=== PATIENT | female | born 1950 | race Caucasian/White ===

== ENCOUNTER 2018-07-02 13:14 | Observation (INO) ==
[2018-07-02] MEDS ORDERED: Naloxone 0.4 MG/ML INJ IVP PRN (16:55)
--- NOTE | 2018-07-02 16:55 | Internal Med History&Physical ---
Date of Encounter: 07/02/18 Time of Encounter: 16:45 Internal Medicine - H&P: HPI Chief complaint: fall, r/o CvA Admitted From: Intrahospital Transfer History of present illness: Ms. Antonio is a 68 year old female patient with history of hypertension, CAD status post 1 stent on aspirin, prediabetes, known alcoholic liver cirrhosis diagnoses recently and awaiting to be seen by GI specialist, cons disease status post multiple abdominal surgery got transferred to [facility] from [place] [facility] for further evaluation of CVA rule out. Patient fell down and hit the back of the head while getting out or the passenger side of the car today and she thinks that she missed the curbside and tired over but denies dizziness or chest pain palpitation during this event. She did not loss consciousness and was brought to [place] ER. In ER patient was found hypokalemic and got replaced. In emergency department patient had episode of generalized weakness with significant dizziness and vertigo. Therefore ER physician got concerned and wanted to rule out a strep therefore transferred to [facility] for further workup of CVA including MRI brain and neurologY consultation. Patient also had scalp laceration is small in size did not require incision at the back of the head During my evaluation patient is alert awake oriented 3 and answering questions appropriately with some slurred speech but it has been persistent for last 2 month as per family. Family stated that patient has been on balance with 5-6 falls and slurred speech for last almost 2 months. During that time. Patient also had UTI and low iron therefore got treated with antibiotic and IV infusion and the patient seemed to doing better therefore family did not address any concern for ongoing slurred speech and all balance and did not seek neurological evaluation. Patient denies fever chills nausea vomiting headache dizziness chest pain shortness of breath abdominal pain urinary bowel complaint at this time Past Med Surg Social Fam HX - Past Medical History Medical history: atrial fibrillation, cirrhosis, coronary artery disease, GERD, hypertension, myocardial infarction, thyroid disease, other Additional medical history: Crohn's, hypothyroidism, SBO Psychiatric history: no psych history - Past Surgical History Surgical History: cholecystectomy, other Additional surgical history: pessary, LHC, stents x2, colectomy - Social History Smoking Status: Former smoker Smokeless Tobacco Status: No Alcohol use: none Drug use: none - Family History Mother Living Status: Hx Family Endocrine Disorder: Yes (DM) Hx Family Neurologic Disorders: Yes (CVA) Father Living Status: Hx Family Respiratory Disorders: Yes Internal Medicine - H&P: Meds Pantoprazole Sodium 40 mg PO QAM 12/15/14 [History] Metoprolol XL (24 HR) Succ [Toprol XL] 100 mg PO QPM 02/25/15 [History] Nitroglycerin [Nitrostat] 0.4 mg SL AD PRN 02/25/15 [History] Aspirin 81 mg PO DAILY 01/22/16 [History] Ergocalciferol (VITAMIN D2) [Vitamin D2] 50,000 unit PO QWEEK 03/03/17 [History] Pregabalin [Lyrica] 150 mg PO BID 14 Days capsule 04/11/17 [Rx] Amitriptyline HCl 75 mg PO DAILY 07/02/18 [History] Cyanocobalamin (B-12) [Vitamin B12] 1,000 mcg PO DAILY 07/02/18 [History] Ketoprofen [Frotek] 1 gm TP DAILY 07/02/18 [History] Levothyroxine [Synthroid] 150 mcg PO DAILY 07/02/18 [History] Pregabalin [Lyrica] 100 mg PO TID 07/02/18 [History] Allergy/AdvReac Type Severity Reaction Status Date / Time Penicillins Allergy Rash Verified 03/26/17 06:12 All Systems PM: A 10-system review of systems was performed and is negative for pertinent findings except as documented above in the HPI. - Constitutional Vitals: Temp Pulse Resp BP Pulse Ox 97.6 F 95 15 136/71 97 07/02/18 15:55 07/02/18 15:55 07/02/18 15:55 07/02/18 15:55 07/02/18 15:55 Exam: General appearance: No acute distress, A&O X 3. Family at bedside. Head exam: Small laceration in the posterior scalp-bandage in place. No visible active bleeding through the dressing. No stenosis Eye exam: EOMI, PERRLA ENT exam: Moist oral mucosa Neck nontender, supple Respiratory exam: Clear to auscultation bilaterally Cardiovascular exam: Regular rate and rhythm, 3 x 6 systolic murmur Abdominal exam: Soft, nontender, nondistended, positive bowel sounds Extremities exam: No calf tenderness, no pedal edema Present: Skin-no rash, warm, dry, intact Neurological exam: Alert, awake, oriented 3, CN II-XII intact, no focal deficits. No facial droop. Mild slurred speech. Patient refused walking as has fear of - Assessment and Plan (1) Dizziness Current Visit: No Status: Acute Assessment and plan: Patient had dizziness and fall today and has been off balance for 2 months and never had cardiac or neurological evaluation. Will admit patient in telemetry, troponin serial, echocardiogram, MRI head, carotid ultrasound. Will restart aspirin and a statin with fasting lipid profile. As patient had consulted cardiology as patient had tachycardia on telemetry. A stat EKG also ordered. Will also consult neurologist if any concern. Fall precaution. (2) Crohns disease Current Visit: No Status: Acute Assessment and plan: Stable. Patient follow GI specialist Dr. quintanilla. Status post multiple abdominal surgery Qualifiers: Gastrointestinal tract location: unspecified location Digestive disease complication type: unspecified complication Qualified Code(s): K50.919 - Crohn's disease, unspecified, with unspecified complications (3) Hypokalemia Current Visit: No Status: Acute Assessment and plan: Potassium 2.9 at [place] that has been replaced by 40 mEq potassium. Will order BMP and magnesium is stat (4) Hypothyroidism Current Visit: No Status: Acute Assessment and plan: TSH ordered. Continue home medicine after having met VAC done Qualifiers: Hypothyroidism type: unspecified Qualified Code(s): E03.9 - Hypothyroidism, unspecified (5) Recurrent falls while walking Current Visit: No Status: Acute Assessment and plan: Has been off balance for last 2 months. No evaluation done. Will rule out underlying CVA or cardiac abnormality. PT OT consultation. Fall risk p recaution (6) UTI (urinary tract infection) Current Visit: No Status: Acute Assessment and plan: Stable UTI recently. UA with reflex to culture. Will consider antibiotic if abnormal Qualifiers: Urinary tract infection type: site unspecified Hematuria presence: without hematuria Qualified Code(s): N39.0 - Urinary tract infection, site not specified (7) CAD (coronary artery disease) Current Visit: No Status: Chronic Assessment and plan: Status post stent. Continue home medicine aspirin. Fasting lipid profile ordered Qualifiers: Coronary Disease-Associated Artery/Lesion type: [place] artery [place] vs. transplanted heart: [place] heart Associated angina: without angina Qualified Code(s): I25.10 - Atherosclerotic heart disease of [place] coronary artery without angina pectoris (8) Hypertension Current Visit: No Status: Chronic Assessment and plan: Will review med rec. Close monitoring. Qualifiers: Hypertension type: essential hypertension Qualified Code(s): I10 - Essential (primary) hypertension (9) DVT prophylaxis Current Visit: No Status: Acute Assessment and plan: Heparin subcutaneous (10) Bradycardia Current Visit: Yes Status: Acute Assessment and plan: Heart rate in 20s and 30s On telemetry. EKG and serial troponin ordered. Will consult cardiology. - Time Spent With Patient Total time spent is greater than 50% in coordination of care (as documented) at patient's floor/unit and/or counseling patient: Greater than 35 minutes
[2018-07-02 19:22] LABS: BUN/Creatinine Ratio 11 (6-26); Blood Urea Nitrogen 10 mg/dL (8-23); Calcium 7.9 mg/dL (8.6-10.3); Carbon Dioxide 23 mEq/L (23-29); Chloride 107 mEq/L (98-107); Glucose 70 mg/dL (70-105); Osmolality,Calculated 285 (280-300); Potassium 3.5 mEq/L (3.5-5.1); Sodium 139 mEq/L (136-145); eGFR For Non-African Americans > 60 (> 60)
[2018-07-02] MEDS: *HR* Heparin 5,000 UNIT/ML VIAL SQ SCH (19:57)
[2018-07-02] MEDS ORDERED: Perflutren Lipid Microsphere 1.3 ML in 0.9 % Sodium Chloride 8.7 ML IVP ONE (21:30)
[2018-07-03 00:37] LABS: Bilirubin,Urine Negative (Negative); Blood,Urine Negative (Negative); Clarity,Urine Clear (Clear); Color,Urine Yellow (Yellow); Glucose,Urine (UA) Normal (Normal); Ketones,Urine 15 mg/dL (Negative); Leukocyte Esterase,Urine Small (Negative); Nitrite,Urine Negative (Negative); Protein,Urine Negative (Neg-Trace); Specific Gravity,Urine 1.015 (1.010-1.025); Urobilinogen,Urine Normal (Normal)
[2018-07-03 00:39] LABS: Mucus,Urine Moderate (Few); Squamous Epithelial Cell,Urine Few per lpf (None-Few)
[2018-07-03 01:38] LABS: Eosinophils # 0.1 K/mcL (0.0-0.6); Eosinophils % 2.5 %; Hemoglobin 9.9 g/dL (11.5-15.4)
[2018-07-03 01:39] LABS: Basophils % 0.4 %; Hematocrit 31.8 % (35.3-44.9); Immature Granulocytes % 0.2 % (0-4); Immature Platelets 5.7 % (1.1-6.1); Lymphocytes % 21.1 %; Mean Corpuscular HGB Conc 31.1 g/dL (31.6-35.5); Mean Corpuscular Hemoglobin 23.3 pg (28.0-33.3); Mean Platelet Volume 11.9 fL (9.4-12.4); Monocytes # 0.4 K/mcL (0.0-1.3); Monocytes % 7.8 %; Platelet Count 162 K/mcL (140-400); Red Blood Count 4.24 M/mcL (3.82-4.97); Red Cell Distribution Width 21.9 % (11.5-14.5)
[2018-07-03 01:41] LABS: Neutrophils # 3.1 K/mcL (1.6-8.9)
[2018-07-03 01:52] LABS: Alanine Aminotransferase 31 Units/L (7-52); Albumin 2.1 g/dL (3.5-5.7); Alkaline Phosphatase 215 Units/L (34-104); Aspartate Amino Transferase 47 Units/L (13-39); BUN/Creatinine Ratio 11 (6-26); Bilirubin,Total 0.5 mg/dL (0.3-1.0); Blood Urea Nitrogen 10 mg/dL (8-23); Calcium 7.5 mg/dL (8.6-10.3); Carbon Dioxide 21 mEq/L (23-29); Chloride 108 mEq/L (98-107); Chol/HDL Ratio 2.3 (0-4.9); Cholesterol 84 mg/dL (< 200); Globulin 2.1 g/dL (2.4-3.5); Glucose 73 mg/dL (70-105); HDL Cholesterol 37 mg/dL (40-59); LDL Cholesterol,Calculated 33 mg/dL (0-99); Osmolality,Calculated 284 (280-300); Potassium 3.5 mEq/L (3.5-5.1); Sodium 138 mEq/L (136-145); Total Protein 4.2 g/dL (6.4-8.9); Triglycerides 71 mg/dL (< 150); eGFR For Non-African Americans 60 (> 60)
[2018-07-03 02:07] LABS: Anisocytosis 1+ (Not Present); Platelet Estimate Normal (Normal)
[2018-07-03] MEDS: *HR* Heparin 5,000 UNIT/ML VIAL SQ SCH ×2 (05:45→18:08)
[2018-07-03] MEDS: Aspirin 81 MG TAB.CHEW PO SCH (08:55)
--- NOTE | 2018-07-03 09:55 | Electrocardiograph Report ---
[place] [id number] Test Date: 2018-07-02 Pat Name: Norma Antonio Department: 113 Room: 3B24 Gender: F [employer]: : 1950 Requested By: Rachael Slaughter Order Number: [id number] Reading MD: Evin Alcocer Measurements Intervals [place] Rate: 95 P: -5 ID: [id number] QRS: -3 QRSD: 84 T: 60 QT: 361 QTc: 414 Interpretive Statements SINUS RHYTHM LOW QRS VOLTAGE IN EXTREMITY LEADS NONSPECIFIC T-WAVE ABNORMALITY Electronically Signed On 07-03-2018 9:54:02 EDT by Evin Alcocer
--- NOTE | 2018-07-03 13:29 | Internal Med Progress Note ---
Hospitalist Progress Note - Encounter Date of Encounter: 07/03/18 Time of Encounter: 13:29 - Subjective Interval History: Patient was assessed at bedside. reports patient has been falling frequently and at times has slurred speech. This is the patient to the bathroom upon standing patient immediately lean to the right side and lost her balance. Since the patient back to bed - Exam Vitals: Temp Pulse Resp BP Pulse Ox 97.8 F 104 18 136/79 96 07/03/18 11:30 07/03/18 11:30 07/03/18 11:30 07/03/18 11:30 07/03/18 11:30 Exam: General appearance: No acute distress, A&O X 3. Family at bedside. Head exam: Small laceration in the posterior scalp-bandage in place. No visible active bleeding through the dressing. No stenosis Eye exam: EOMI, PERRLA ENT exam: Moist oral mucosa Neck nontender, supple Respiratory exam: Clear to auscultation bilaterally Cardiovascular exam: Regular rate and rhythm, 3 x 6 systolic murmur Abdominal exam: Soft, nontender, nondistended, positive bowel sounds Extremities exam: No calf tenderness, no pedal edema Present: Skin-no rash, warm, dry, intact Neurological exam: Alert, awake, oriented 3, CN II-XII intact, no focal deficits. No facial droop. Speech is fluent. Attempted to walk and leading to right side - Assessment and Plan (1) Crohns disease Current Visit: No Status: Acute Assessment and Plan: Stable. Patient follow GI specialist Dr. quintanilla. Status post multiple abdominal surgery (2) CAD (coronary artery disease) Current Visit: No Status: Chronic Assessment and Plan: Status post stent. Continue home medicine . (3) Hypertension Current Visit: No Status: Chronic Assessment and Plan: Continue lisinopril and beta james (4) Hypothyroidism Current Visit: No Status: Acute Assessment and Plan: TSH stable (5) DVT prophylaxis Current Visit: No Status: Acute Assessment and Plan: Heparin subcutaneous (6) Hypokalemia Current Visit: No Status: Acute Assessment and Plan: Replace and monitor (7) Recurrent falls while walking Current Visit: No Status: Acute Assessment and Plan: Has been off balance for last 2 months. Recurrent mechanical falls while walking Fell and struck head abrasion superior occiput Has history of chronic diarrhea from Crohn's disease as well as chronic anemia which could be contributing to hypotension and orthostatic Electrolytes are normal which we will replace History of chronic UTIs Neurology consulted and appreciate recommendations (8) UTI (urinary tract infection) Current Visit: No Status: Acute Assessment and Plan: Stable UTI recently. UA with reflex to culture. Will consider antibiotic if abnormal (9) Dizziness Current Visit: No Status: Acute Assessment and Plan: Continue telemetry Troponins negative 2 Carotid duplex Impressions: Findings: Bilateral distal ICA has a moderate, 40-59% stenosis. Cardiac echo mpressions: LVEF 50-55%. Normal left ventricular diastolic function. The right ventricle was not well visualized but appeared grossly normal in size and function Interatrial septum not well evaluated. Poor quality agitated saline contrast study Unable to estimate RVSP due to lack of TR jet. No obvious significant valvular dysfunction in this technically challenging study. MRI of head with no acute intracranial on the maladies EKG with sinus rhythm MRA of head pending Neurology consulted and appreciate recommendations PT OT Fall precautions (10) Bradycardia Current Visit: Yes Status: Acute Assessment and Plan: Heart rate in 20s and 30s On telemetry. EKG and serial troponin ordered. Will consult cardiology.- Cardiology consult canceled due to patient's telemetry showing rate 60-70 apparently leads were reversed during initial monitoring-which did reveal heart rate in the 20 - Time Spent with Patient Total time spent is greater than 50% in coordination of care (as documented) at patient's floor/unit and/or counseling patient: Internal Medicine: Result - Labs CBC & Chem 7: 07/03/18 01:22 07/03/18 01:22 Labs: Short CBC 07/03/18 Range/Units 01:22 WBC 4.5 (4.3-11.1) K/mcL Hgb 9.9 L D (11.5-15.4) g/dL Hct 31.8 L (35.3-44.9) % Plt Count 162 (140-400) K/mcL Neutrophils # 3.1 (1.6-8.9) K/mcL BMP 07/02/18 07/03/18 18:38 01:22 Sodium 139 138 Potassium 3.5 3.5 Chloride 107 108 H Carbon Dioxide 23 21 L BUN 10 10 Creatinine 0.92 0.93 Glucose 70 73 Calcium 7.9 L 7.5 L Cardiac Enzymes 07/02/18 07/03/18 Range/Units 17:17 01:22 Troponin I < 0.03 < 0.03 (< 0.04) ng/mL Liver Function 07/03/18 Range/Units 01:22 Total Bilirubin 0.5 (0.3-1.0) mg/dL AST 47 H (13-39) Units/L ALT 31 (7-52) Units/L Alkaline Phosphatase 215 H (34-104) Units/L Albumin 2.1 L (3.5-5.7) g/dL Urine 07/02/18 Range/Units 19:08 Urine Color Yellow (Yellow) Urine Clarity Clear (Clear) Urine pH 6.0 (5.0-8.0) pH Units Ur Specific [place] 1.015 (1.010-1.025) Urine Protein Negative (Neg-Trace) mg/dL Urine Glucose (UA) Normal (Normal) mg/dL - Impressions Impressions Brain MRI 07/02/18 18:00 IMPRESSION: No acute infarct. D/ / Lucius Barrow MD / Lucius Barrow MD Interpreting Provider: Lucius Barrow MD Consult Discharge Plan - Plan Referrals: Rose Juarez MD [Partnered Physician] - 07/06/18 3:45 pm () Nikolay Quintanilla MD [Partnered Physician] - 07/25/18 3:50 pm ____ (1) Crohns disease Qualifiers: Gastrointestinal tract location: unspecified location Digestive disease complication type: unspecified complication Qualified Code(s): K50.919 - Crohn's disease, unspecified, with unspecified complications (2) CAD (coronary artery disease) Qualifiers: Coronary Disease-Associated Artery/Lesion type: [place] artery [place] vs. transplanted heart: [place] heart Associated angina: without angina Qualified Code(s): I25.10 - Atherosclerotic heart disease of [place] coronary artery without angina pectoris (3) Hypertension Qualifiers: Hypertension type: essential hypertension Qualified Code(s): I10 - Essential (primary) hypertension (4) Hypothyroidism Qualifiers: Hypothyroidism type: unspecified Qualified Code(s): E03.9 - Hypothyroidism, unspecified (8) UTI (urinary tract infection) Qualifiers: Urinary tract infection type: site unspecified Hematuria presence: without hematuria Qualified Code(s): N39.0 - Urinary tract infection, site not specified
[2018-07-03 13:48] LABS: Magnesium 1.2 mg/dL (1.6-2.6)
--- NOTE | 2018-07-03 15:12 | Neurology - Consult Note ---
<Lj Singletary J - Last Filed: 07/03/18 15:08> Date of Encounter: 07/03/18 Time of Encounter: 15:09 Assessment and Plan (1) Recurrent falls while walking Current Visit: No Status: Acute Patient having recurrent mechanical falls while walking. Reporting decreased activity tolerance leading to weakness and falls Fell a [facility] yesterday resulting in head trauma and superior occiput abrasion. Denies any syncopal episodes (LOC) or seizure-like activity. Reports that falls have been occurring for approximately 2 months and that she has had a decreased activity tolerance x 2 months as well. Acute neurovascular event ruled out with unremarkable CT imaging of the head, unremarkable MRI of the brain, grossly normal TTE and unremarkable spine i maging. Carotid duplex imaging reveals B/L distal moderate 40-59% ICA stenosis. TSH 2.302 within range, vitals are stable without episodes of hypotension, urine tox screen is pending. Urinalysis reveals suspected urinary tract infection; has history of recurrent urinary tract infections Has chronic diarrhea 2/2 Crohn's disease and is chronically dehydrated Has chronic Anemia 2/2 nutritional deficiencies Had multiple metabolic derangements including hypomagnesemia and hypokalemia Neurologically her exam is nonfocal and nonlateralizing. Given negative neuroimaging I do not feel that the falls are of an acute neurological cause. The mechanical falls are most likely caused by her underlying UTI, autoimmune process with Crohn's, dehydration, and deconditioning. Recommend treating underlying metabolic abnormalities, continuing with gentle rehydration, and treating underlying UTI. Further, we recommend PT/OT. Patient may need evaluation for outpatient therapy as well. Although she denies syncopal events given recurrent falls we will obtain a CTA of the head and neck. My exam did not elicit any parkinsonian findings, there are no tremors, bradykinesia, of rigidity. Neurology will sign off at this time. Please feel free to reconsult should any further need arise. (2) UTI (urinary tract infection) Current Visit: No Status: Acute Qualifiers: Urinary tract infection type: site unspecified Hematuria presence: without hematuria Qualified Code(s): N39.0 - Urinary tract infection, site not specified (3) Dizziness Current Visit: No Status: Acute History of Present Illness Chief complaint: falls, slurred speech HPI: Ms. Antonio is a 68 year old female with a PMH of Cirrhosis, CAD, GERD, HTN, MS, and hypothyroidism who presents with dizziness, recurrent falls x2 months with about 5-7 falls, and intermittent slurred speech. Neuro c/s to eval for cause of falls and slurred speech. The patient reports that throughout the last two months she has fallen on multiple occasions. She denies any loss of consciousness with the falls events. Further, she denies any prodrome or inciting factors for falls but reports that "I will be up and walking and all of a sudden lose my balance". She reports that she has never been evaluated for this. She denies ever having any convulsive or seizure-like activity. She denies any transient episodes of inattention or staring spells. She reports that she was at [facility] yesterday and while getting out of the car she fell and hit her head on the curb resulting in an abrasion to the occiput. Again, prior to falls she denies any unilateral weakness, dysphagia, dysarthria, visual changes, slurred speech. She has only reporting dizziness after the falls event. Furthermore, she denies any chest pain, shortness of breath, palpitations. She does note a history of Crohn's and reports frequent diarrhea as well as acknowledging that she is frequently dehydrated due to such. She also notes a history of recurrent urinary tract infections. Since this admission she has had a carotid duplex scan which revealed bilateral distal ICA moderate stenosis at 48 and 59%. C-spine CT shows no acute abnormality of the C-spine, CT of head negative for any acute intracranial abnormality. Brain MRI also negative for any acute infarct. CBC reveals a mild anemia with an Hgb/HCT of 9.9/31.8; anemia is chronic but Hgb of 9 is lower than patient normal. Chemistry revealed hypokalemia with serum potassium of 2.8 and hypomagnesemia w ith a serum magnesium of 1.3. Otherwise, vital signs are stable and there is no evidence of hypotension. Past Med Surg Social Fam HX - Past Medical History Medical history: atrial fibrillation, cirrhosis, coronary artery disease, GERD, hypertension, myocardial infarction, thyroid disease, other Additional medical history: Crohn's, hypothyroidism, SBO Psychiatric history: no psych history - Past Surgical History Surgical History: cholecystectomy, other Additional surgical history: pessary, LHC, stents x2, colectomy - Social History Smoking Status: Former smoker Smokeless Tobacco Status: No Alcohol use: none Drug use: none - Family History Mother Living Status: Hx Family Endocrine Disorder: Yes (DM) Hx Family Neurologic Disorders: Yes (CVA) Father Living Status: Hx Family Respiratory Disorders: Yes Medications and Allergies Pantoprazole Sodium 40 mg PO QAM 12/15/14 [History] Metoprolol XL (24 HR) Succ [Toprol XL] 100 mg PO QPM 02/25/15 [History] Aspirin 81 mg PO DAILY 01/22/16 [History] Ergocalciferol (VITAMIN D2) [Vitamin D2] 50,000 unit PO FR 03/03/17 [History] Cyanocobalamin (B-12) [Vitamin B12] 1,000 mcg PO DAILY 07/02/18 [History] Ketoprofen [Frotek] 1 applic TP TID PRN 07/02/18 [History] Levothyroxine [Synthroid] 150 mcg PO DAILY 07/02/18 [History] Pregabalin [Lyrica] 100 mg PO TID PRN 07/02/18 [History] Lisinopril [Zestril] 10 mg PO DAILY 07/03/18 [History] Allergy/AdvReac Type Severity Reaction Status Date / Time Penicillins Allergy Rash Verified 03/26/17 06:12 All Systems: The remainder of the systems were reviewed and are negative Review of Systems: REVIEW OF SYSTEMS GENERAL: Negative for any nausea, vomiting, fevers, chills, or weight loss, fatigue POSITIVE-decreased activity tolerance NEUROLOGIC: Negative-visual changes, facial asymmetry, dysphagia, hemiparesis, hemisensory deficits, seizure/convulsions/and attentive episodes, rigidity, stiffness, difficulty completing activities, fumbling with objects, unilateral numbness/weakness POSITIVE-difficulty rising from seated to standing position, disequilibrium HEENT: POSITIVE-head trauma resulting in an abrasion to the superior occiput. Negative for any neck pain, stiffness, photophobia, phonophobia, tinnitus, ear fullness, ear pain CARDIAC: Negative for any chest pain, dyspnea, palpitations, peripheral edema GASTROINTESTINAL: Negative for any abdominal pain, nausea, vomiting. POSITIVE- chronic diarrhea 2/2 Crohn's disease GENITOURINARY: Negative for any dysuria, hematuria. POSITIVE-for occasional urinary incontinence and urgency ENDOCRINE: NEGATIVE-Thyroid trouble, heat/cold intolerance, excessive sweating MUSCULOSKELETAL: NEGATIVE-Joint pain, stiffness, loss of strength Physical Examination - Vital Signs Vital Signs: Initial Vital Signs Temp Pulse Resp BP Pulse Ox 97.6 F 95 15 136/71 97 07/02/18 15:55 07/02/18 15:55 07/02/18 15:55 07/02/18 15:55 07/02/18 15:55 - Exam Exam: Examination: General Examination: *CONSTITUTIONAL: Alert and oriented x3, no acute distress *GENERAL APPEARANCE OF PATIENT elderly female who overall appears generally ill *EYES: pupils equal, round, reactive to light and accommodation, conjunctiva clear *CARDIOVASCULAR RRR, S1, S2, no peripheral edema, distal temperature normal, dorsalis pedis pulses normal. See vitals Musculoskeletal: *GAIT AND STATION normal, with normal Romberg testing, gait is fluid with appropriate stride and speed and no evidence of shuffling. No difficulty with pitting. However, she had some difficulty with heel-to-toe walking exhibiting some disequilibrium. *ASSESSMENT OF MUSCLE STRENGTH IN THE UPPER AND LOWER EXTREMITIES chai ateral deltoid, bicep, tricep, lead manufacturing engineer strength, hip flexors ,anterior tibialis, dorsoflexion of the foot 5/5 *MUSCLE TONE IN THE UPPER AND LOWER EXTREMITIES normal. No abnormal movements, fasciculations or atrophy identified. Neurological: *ORIENTATION to person, situation, time and place *RECURRENT AND REMOTE MEMORY intact *ATTENTION AND CONCENTRATION are normal *LANGUAGE FUNCTION no significant aphasia or dysarthia was noted. *FUND OF KNOWLEDGE aware of current events, past history, vocabulary is appropriate *MENTAL attention span and concentration normal. *CN II optic fundi were normal, no papilledema noted. *CN III,IV, PERRLA extraocular eye movements were full, no nystagmus and no ptosis noted. Most notably no evidence of supranuclear palsy *CN V shows normal sensation and jaw opens symmetrically. *CN VII shows normal facial movement symmetrically, upper and lower bilaterally. *CN VIII shows no significant hearing loss on exam *CN IX,,X palate elevated symmetrically *CN XI normal strength in the sternocleidomastoid muscles, symmetrical shoulder shrugging. *CN XII tongue protruded in the midline, with normal strength and movement. *SENSORY EXAMINATION light touch intact *REFLEXES: deep tendon reflexes were normal and symmetrical , grade 1/4 diffusely, no pathological reflexes were noted. *CEREBELLAR TESTING normal finger to nose, heel/knee/shepard *PAIN LEVEL 0 Results - Laboratory Findings CBC and BMP: 07/03/18 01:22 07/03/18 01:22 Abnormal lab findings: Abnormal lab results Hgb 9.9 g/dL (11.5-15.4) L D 07/03/18 01:22 Hct 31.8 % (35.3-44.9) L 07/03/18 01:22 MCV 75.0 fL (83.0-100.0) L 07/03/18 01:22 MCH 23.3 pg (28.0-33.3) L 07/03/18 01:22 MCHC 31.1 g/dL (31.6-35.5) L 07/03/18 01:22 RDW 21.9 % (11.5-14.5) H 07/03/18 01:22 Anisocytosis 1+ (Not Present) A 07/03/18 01:22 Chloride 108 mEq/L (98-107) H 07/03/18 01:22 Carbon Dioxide 21 mEq/L (23-29) L 07/03/18 01:22 Calcium 7.5 mg/dL (8.6-10.3) L 07/03/18 01:22 Magnesium 1.2 mg/dL (1.6-2.6) L 07/03/18 01:22 AST 47 Units/L (13-39) H 07/03/18 01:22 Alkaline Phosphatase 215 Units/L (34-104) H 07/03/18 01:22 Serum Total Protein 4.2 g/dL (6.4-8.9) L 07/03/18 01:22 Albumin 2.1 g/dL (3.5-5.7) L 07/03/18 01:22 Globulin 2.1 g/dL (2.4-3.5) L 07/03/18 01:22 Albumin/Globulin Ratio 1.0 (1.1-2.2) L 07/03/18 01:22 HDL Cholesterol 37 mg/dL (40-59) L 07/03/18 01:22 Urine Ketones 15 mg/dL (Negative) H 07/02/18 19:08 Ur Leukocyte Esterase Small (Negative) H 07/02/18 19:08 Urine Microscopic WBC 3-5 per hpf (0-3) H 07/02/18 19:08 Urine Mucus Moderate (Few) H 07/02/18 19:08 Ur Culture Indicated? YES (NO) A 07/02/18 19:08 - Diagnostic Findings Additional findings: MR/MR head/brain wo con IMPRESSION: No acute infarct. Impressions: Findings: Bilateral distal ICA has a moderate, 40-59% stenosis. CT/CT cervical spine wo con IMPRESSION: No acute abnormality of the cervical spine. CT/CT head/brain wo con IMPRESSION: No acute intracranial abnormality. Small left parietal scalp cephalhematoma Consult Discharge Plan - Plan Referrals: Rose Juarez MD [Partnered Physician] - 07/06/18 3:45 pm () Nikolay Moe MD [Partnered Physician] - 07/25/18 3:50 pm <Rc García - Last Filed: 07/03/18 18:38> Date of Encounter: 07/03/18 Time of Encounter: 18:31 Assessment and Plan (1) Recurrent falls while walking Current Visit: No Status: Acute I have personally performed a [id number] assessment of the patient and have reviewed the PA/EDUCATIONAL RESOURCE COORDINATOR note. My impressions are as follows: I agree with the assessment of the TARGET AIRCRAFT CONTROLLER as stated above. At this juncture I do not see evidence of a primary neurologic etiology representing symptoms. Currently however she may have experienced a mild concussion, and I agree that she does have multiple metabolic derangements including a urinary tract infection and hydration any of which could possibly contribute to her and gait instability. I would like to follow up with her as an outpatient in my office for further testing after discharge. I see no evidence of hepatic Parkinson's disease or a Parkinson's plus syndrome at this time. (2) UTI (urinary tract infection) Current Visit: No Status: Acute Qualifiers: Urinary tract infection type: site unspecified Hematuria presence: without hematuria Qualified Code(s): N39.0 - Urinary tract infection, site not specified (3) Dizziness Current Visit: No Status: Acute History of Present Illness HPI: I have personally performed a [id number] assessment of the patient and have reviewed the PA/EDUCATIONAL RESOURCE COORDINATOR note. My impressions are as follows: Ms. Antonio is a 68 year old female being seen for neurologic evaluation secondary to several recent falls with associated with intermittent slurred speech. The case was discussed with the TARGET AIRCRAFT CONTROLLER. Patient was seen and evaluated independently. I agree with the history taken by the TARGET AIRCRAFT CONTROLLER as above. Patient is now alert and oriented 3 and back to her normal baseline status. I did review the MRI scan of the brain as well as CT scan of the brain both of which were normal. UA is consistent with urinary tract infection. Carotid Doppler studies were normal. All Systems: The remainder of the systems were reviewed and are negative Review of Systems: The balance of the systems review is negative. Physical Examination - Vital Signs Vital Signs: Initial Vital Signs Temp Pulse Resp BP Pulse Ox 97.6 F 95 15 136/71 97 07/02/18 15:55 07/02/18 15:55 07/02/18 15:55 07/02/18 15:55 07/02/18 15:55 - Exam Exam: I have personally performed a [id number] assessment of the patient and have reviewed the PA/EDUCATIONAL RESOURCE COORDINATOR note. My impressions are as follows: I performed a complete an independent neurologic examination on this patient. I agree with the documentation of the neurologic examination as above. Results - Laboratory Findings CBC and BMP: 07/03/18 01:22 07/03/18 01:22 Abnormal lab findings: Abnormal lab results Hgb 9.9 g/dL (11.5-15.4) L D 07/03/18 01:22 Hct 31.8 % (35.3-44.9) L 07/03/18 01:22 MCV 75.0 fL (83.0-100.0) L 07/03/18 01:22 MCH 23.3 pg (28.0-33.3) L 07/03/18 01:22 MCHC 31.1 g/dL (31.6-35.5) L 07/03/18 01:22 RDW 21.9 % (11.5-14.5) H 07/03/18 01:22 Anisocytosis 1+ (Not Present) A 07/03/18 01:22 Chloride 108 mEq/L (98-107) H 07/03/18 01:22 Carbon Dioxide 21 mEq/L (23-29) L 07/03/18 01:22 Calcium 7.5 mg/dL (8.6-10.3) L 07/03/18 01:22 Magnesium 1.2 mg/dL (1.6-2.6) L 07/03/18 01:22 AST 47 Units/L (13-39) H 07/03/18 01:22 Alkaline Phosphatase 215 Units/L (34-104) H 07/03/18 01:22 Ammonia 61 mcmol/L (16-53) H 07/03/18 16:40 Serum Total Protein 4.2 g/dL (6.4-8.9) L 07/03/18 01:22 Albumin 2.1 g/dL (3.5-5.7) L 07/03/18 01:22 Globulin 2.1 g/dL (2.4-3.5) L 07/03/18 01:22 Albumin/Globulin Ratio 1.0 (1.1-2.2) L 07/03/18 01:22 HDL Cholesterol 37 mg/dL (40-59) L 07/03/18 01:22 Urine Ketones 15 mg/dL (Negative) H 07/02/18 19:08 Ur Leukocyte Esterase Small (Negative) H 07/02/18 19:08 Urine Microscopic WBC 3-5 per hpf (0-3) H 07/02/18 19:08 Urine Mucus Moderate (Few) H 07/02/18 19:08 Ur Culture Indicated? YES (NO) A 07/02/18 19:08
[2018-07-03] MEDS ORDERED: Pregabalin 50 MG CAPSULE PO PRN (19:58)
[2018-07-03] MEDS ORDERED: Metoprolol XL (24 HR) Succ 50 MG TAB.ER.24H PO SCH (20:00)
[2018-07-04 04:09] LABS: Basophils # 0.1 K/mcL (0.0-0.2); Basophils % 0.9 %; Eosinophils # 0.2 K/mcL (0.0-0.6); Eosinophils % 3.2 %; Hematocrit 31.6 % (35.3-44.9); Hemoglobin 9.7 g/dL (11.5-15.4); Immature Granulocytes % 0.2 % (0-4); Lymphocytes # 0.9 K/mcL (0.6-4.6); Lymphocytes % 16.8 %; Mean Corpuscular HGB Conc 30.7 g/dL (31.6-35.5); Mean Corpuscular Hemoglobin 23.2 pg (28.0-33.3); Mean Corpuscular Volume 75.6 fL (83.0-100.0); Mean Platelet Volume 11.9 fL (9.4-12.4); Monocytes # 0.6 K/mcL (0.0-1.3); Monocytes % 11.5 %; Neutrophils # 3.6 K/mcL (1.6-8.9); Platelet Count 173 K/mcL (140-400); Red Blood Count 4.18 M/mcL (3.82-4.97); Red Cell Distribution Width 22.5 % (11.5-14.5); Segmented Neutrophils % 67.4 %
[2018-07-04 04:22] LABS: BUN/Creatinine Ratio 13 (6-26); Blood Urea Nitrogen 12 mg/dL (8-23); Calcium 7.6 mg/dL (8.6-10.3); Carbon Dioxide 24 mEq/L (23-29); Chloride 110 mEq/L (98-107); Glucose 87 mg/dL (70-105); Osmolality,Calculated 289 (280-300); Potassium 3.4 mEq/L (3.5-5.1); Sodium 140 mEq/L (136-145); eGFR For Non-African Americans > 60 (> 60)
[2018-07-04] MEDS: *HR* Heparin 5,000 UNIT/ML VIAL SQ SCH (05:59)
[2018-07-04] MEDS: Aspirin 81 MG TAB.CHEW PO SCH (08:44)
[2018-07-04 08:51] LABS: Magnesium 1.8 mg/dL (1.6-2.6)
[2018-07-04] MEDS ORDERED: Cyanocobalamin (B-12) 1,000 MCG TABLET PO SCH (09:00)
[2018-07-04] MEDS ORDERED: Magnesium Oxide 400 MG TABLET PO SCH (09:00)
[2018-07-04] MEDS ORDERED: Vitamin B Complex/Vit C/Vit E 1 EACH TABLET PO SCH (11:45)
--- NOTE | 2018-07-04 14:33 | Physician Discharge Referral ---
Home Health/Hosp Referral Info Transfer to: Home Health Provider in Charge Post Discharge: PCP - Diagnosis (1) Bradycardia Priority: Primary Status: Acute (2) Crohns disease Priority: Secondary Status: Acute (3) Hypokalemia Priority: Primary Status: Acute (4) Recurrent falls while walking Priority: Primary Status: Acute (5) CAD (coronary artery disease) Priority: Secondary Status: Chronic (6) Hypertension Priority: Secondary Status: Chronic (7) Hypothyroidism Priority: Secondary Status: Chronic - Respiratory Orders Smoking Cessation: Smoking cessation has been advised. For more information, call the [place] Tobacco Quit Line at 2-496-LTWC-NOW. - Diet/Nutrition Diet/Nutrition Orders: Regular - Activity Activity Orders: Walker - Services Needed Following services are medically necessary services: Nursing, Home Health Aide, Physical Therapy, Occupational Therapy - Transfer Medications Prescriptions: Magnesium Oxide [Mag-Ox] 400 mg PO BID #60 tablet Potassium Chloride 20 meq PO DAILY #30 tab.er.prt Vitamin B Complex/Vit C/Vit E [Stresstab] 1 each PO DAILY #30 tablet Home Medications: Pantoprazole Sodium 40 mg PO QAM 12/15/14 [History] Metoprolol XL (24 HR) Succ [Toprol XL] 100 mg PO QPM 02/25/15 [History] Aspirin 81 mg PO DAILY 01/22/16 [History] Ergocalciferol (VITAMIN D2) [Vitamin D2] 50,000 unit PO FR 03/03/17 [History] Cyanocobalamin (B-12) [Vitamin B12] 1,000 mcg PO DAILY 07/02/18 [History] Ketoprofen [Frotek] 1 applic TP TID PRN 07/02/18 [History] Levothyroxine [Synthroid] 150 mcg PO DAILY 07/02/18 [History] Pregabalin [Lyrica] 100 mg PO TID PRN 07/02/18 [History] Lisinopril [Zestril] 10 mg PO DAILY 07/03/18 [History] Magnesium Oxide [Mag-Ox] 400 mg PO BID #60 tablet 07/04/18 [Rx] Potassium Chloride 20 meq PO DAILY #30 tab.er.prt 07/04/18 [Rx] Vitamin B Complex/Vit C/Vit E [Stresstab] 1 each PO DAILY #30 tablet 07/04/18 [Rx] Allergies/Adverse Reactions: Allergy/AdvReac Type Severity Reaction Status Date / Time Penicillins Allergy Rash Verified 03/26/17 06:12 Certification: Further, I certify that my clinical findings support that this patient is homebound (i.e. absences from home require considerable and taxing effort and are for medical reasons or [employer] services or infrequently or short duration when for other reasons) because: Homebound Reason: Patient requires assistance of a person or device to safely leave home Attestation: My signature below is to certify that this patient is under my care and that I, or nurse practitioner, or a physician's hair or beauty salon assistant working with me, has a [id number] encounter with this patient.
--- NOTE | 2018-07-04 14:36 | Discharge Summary ---
- NOTES TO OUTPATIENT PROVIDER Notes to Outpatient Provider: f/u with PCP within a week. f/u with GI within a week. Orders not resulted at time of discharge: Pending orders 07/03/18 13:25 Urine tox screen [Drug Screen, Urine] [UCHEM] Routine Date of Encounter: 07/04/18 Time of Encounter: 14:34 - Discharge Diagnosis (1) Crohns disease Priority: Secondary Status: Acute Assessment and Plan: Stable. Patient follow GI specialist Dr. quintanilla. Status post multiple abdominal surgery Qualifiers: Gastrointestinal tract location: unspecified location Digestive disease complication type: unspecified complication Qualified Code(s): K50.919 - Crohn's disease, unspecified, with unspecified complications (2) CAD (coronary artery disease) Priority: Secondary Status: Chronic Qualifiers: Coronary Disease-Associated Artery/Lesion type: [place] artery [place] vs. transplanted heart: [place] heart Associated angina: without angina Qualified Code(s): I25.10 - Atherosclerotic heart disease of [place] coronary artery without angina pectoris (3) Hypertension Priority: Secondary Status: Chronic Qualifiers: Hypertension type: essential hypertension Qualified Code(s): I10 - Essential (primary) hypertension (4) Hypothyroidism Priority: Secondary Status: Chronic Qualifiers: Hypothyroidism type: unspecified Qualified Code(s): E03.9 - Hypothyroidism, unspecified (5) DVT prophylaxis Priority: Primary Status: Acute (6) Hypokalemia Priority: Primary Status: Acute (7) Recurrent falls while walking Priority: Primary Status: Acute (8) UTI (urinary tract infection) Priority: Primary Status: Ruled-out Qualifiers: Urinary tract infection type: site unspecified Hematuria presence: without hematuria Qualified Code(s): N39.0 - Urinary tract infection, site not specified (9) Dizziness Priority: Primary Status: Acute (10) Bradycardia Priority: Primary Status: Acute Hospital course: Ms. Antonio is a 68 year old female patient with history of hypertension, CAD status post 1 stent on aspirin, prediabetes, known alcoholic liver cirrhosis diagnoses recently and awaiting to be seen by GI specialist, Crohn disease status post multiple abdominal surgery transferred to [facility] from [facility] for further evaluation of CVA rule out. Patient fell down and hit the back of the head while getting out or the passenger side of the car today and she thinks that she missed the curbside and tired over but denies dizziness or chest pain palpitation during this event. She did not loss consciousness and was brought to [place] ER. In ER patient was found hypokalemic and got replaced. In emergency department patient had episode of generalized weakness with significant dizziness and vertigo. Therefore ER physician got concerned and wanted to rule out CVA. Patient also had scalp laceration is small in size did not require surgical intervention at the back of the head. Labs showed microcytic anemia, hypokalemia and hypomagnesia. Further workup showed free of CVA in MRI brain, insignificant stenosis of bilateral internal carotid artery, unremarkable ECHO. K+ and Mag was replaced. Neuro was consulted and recommended to correct metabolic disorders. PT/OT evaluated and recommended home health. Pt will be discharged home with home health today. Instructed to continue iron infusion with GI, continue taking Vit B12, and D, continue taking daily K and Mag supplement, diet with high protein. F/U with PCP and GI within a week. Discharge discussed with: patient, family Time spent discussing smoking cessation with patient: more than 10 minutes - Time Spent with Patient Total time spent providing and/or coordinating discharge services: Time spent: Greater than 30 minutes - Discharge Medications Prescriptions: New Magnesium Oxide [Mag-Ox] 400 mg PO BID #60 tablet Potassium Chloride 20 meq PO DAILY #30 tab.er.prt Vitamin B Complex/Vit C/Vit E [Stresstab] 1 each PO DAILY #30 tablet Continue Pantoprazole Sodium 40 mg PO QAM Metoprolol XL (24 HR) Succ [Toprol XL] 100 mg PO QPM Lisinopril [Zestril] 10 mg PO DAILY Aspirin 81 mg PO DAILY Ergocalciferol (VITAMIN D2) [Vitamin D2] 50,000 unit PO FR Levothyroxine [Synthroid] 150 mcg PO DAILY Pregabalin [Lyrica] 100 mg PO TID PRN PRN Reason: Pain Cyanocobalamin (B-12) [Vitamin B12] 1,000 mcg PO DAILY Ketoprofen [Frotek] 1 applic TP TID PRN PRN Reason: PAIN FROM SHINGLES Home Medications: Pantoprazole Sodium 40 mg PO QAM 12/15/14 [History] Metoprolol XL (24 HR) Succ [Toprol XL] 100 mg PO QPM 02/25/15 [History] Aspirin 81 mg PO DAILY 01/22/16 [History] Ergocalciferol (VITAMIN D2) [Vitamin D2] 50,000 unit PO FR 03/03/17 [History] Cyanocobalamin (B-12) [Vitamin B12] 1,000 mcg PO DAILY 07/02/18 [History] Ketoprofen [Frotek] 1 applic TP TID PRN 07/02/18 [History] Levothyroxine [Synthroid] 150 mcg PO DAILY 07/02/18 [History] Pregabalin [Lyrica] 100 mg PO TID PRN 07/02/18 [History] Lisinopril [Zestril] 10 mg PO DAILY 07/03/18 [History] Magnesium Oxide [Mag-Ox] 400 mg PO BID #60 tablet 07/04/18 [Rx] Potassium Chloride 20 meq PO DAILY #30 tab.er.prt 07/04/18 [Rx] Vitamin B Complex/Vit C/Vit E [Stresstab] 1 each PO DAILY #30 tablet 07/04/18 [Rx] Allergies/Adverse Reactions: Allergy/AdvReac Type Severity Reaction Status Date / Time Penicillins Allergy Rash Verified 03/26/17 06:12 Date of admission: 07/02/18 15:24 Primary care physician: PCP NONE Consults: 07/02/18 16:58 Consult to [employer] [CONS] Routine Reason for SW Consult: Discharge plan 07/02/18 18:02 Consult to Occupational Therapy [CONS] Routine Comment: Evaluate, develop and implement POC Reason for Consult: Generalized weakness Does patient have active BEDREST order?: Yes Is patient medically & hemodynamically stable?: Yes Patient assessed for mobility or mobilized this visit?: No Consult to Physical Therapy [CONS] Routine Comment: Evaluate, develop and implement POC Reason for Consult: Generalized weakness Does patient have active BEDREST order?: No Is patient medically & hemodynamically stable?: Yes Patient assessed for mobility or mobilized this visit?: No 07/03/18 13:25 Consult to Neurology [CONS] Routine Consulting Provider: Neurology [facility] Reason for Consult: falls slurred speech Time Notified: 13:28 Call Completed: Yes 07/04/18 07:59 Consult to Nutrition [CONS] Routine Comment: Consulting Provider: NUTRITION Reason for Dietary Consult: Diet Education Anticipated date of discharge: 07/04/18 - Constitutional Vitals: Temp Pulse Resp BP Pulse Ox 97.3 F L 73 17 94/65 92 07/04/18 10:45 07/04/18 10:45 07/04/18 10:45 07/04/18 10:45 07/04/18 10:45 General appearance: Present: A&O X 3 Exam: General appearance: No acute distress, A&O X 3. Family at bedside. Head exam: Small laceration in the posterior scalp-bandage in place. No visible active bleeding through the dressing. No stenosis Eye exam: EOMI, PERRLA ENT exam: Moist oral mucosa Neck nontender, supple Respiratory exam: Clear to auscultation bilaterally Cardiovascular exam: Regular rate and rhythm, 3 x 6 systolic murmur Abdominal exam: Soft, nontender, nondistended, positive bowel sounds Extremities exam: No calf tenderness, no pedal edema Present: Skin-no rash, warm, dry, intact Neurological exam: Alert, awake, oriented 3, CN II-XII intact, no focal deficits. No facial droop. Speech is fluent. Attempted to walk and leading to right side - Patient Status Disposition: Home Health Service Condition: Fair Functional capacity at discharge: uses cane/walker Overall status at discharge: patient is progressing back to baseline - Discharge Instructions Follow Up With: Rose Juarez MD [Partnered Physician] - 07/06/18 3:45 pm () Nikolay Quintanilla MD [Partnered Physician] - 07/25/18 3:50 pm Additional Instructions: Home Health has been set up through [facility]. They will contact you to set up a date and time to complete admission. If you need to contact them please call #[phone] or #[phone]. A Bedside Commode and rollator walker prescription has been sent to [facility]. Please call them to arrange time to greens picker equipment #[phone]. - Diet and Activity Activity: increase activity as tolerated Diet: advance to your usual diet
[2018-07-04 15:59] VITALS: BP 119/71
== END 2018-07-04 16:40 | disposition home health service (06) ==
LOC: 3BNU
PROVIDERS: ADMIT Hospitalist; ATTEND Hospitalist